=== PATIENT | female | born 1980 | race Caucasian/White ===

== ENCOUNTER 2018-08-29 13:08 | Outpatient (REF) | payer BC, SELFPAY | END 2018-08-29 13:28 | LOC: LBN 13:08 | PROVIDERS: PCP Family Medicine | DX: J02.9 Acute pharyngitis, unspecified (principal) | CPT/HCPCS: 86060; 86215; 87081 ==

== ENCOUNTER 2019-08-27 16:40 | Outpatient (REF) | payer BC, SELFPAY ==
--- NOTE | 2019-08-27 15:40 | PAPFT_PTH ---
PATIENT: Darlin Reich LOC: [facility] U#:[id number] AGE/SX: 39/F ROOM: RE08/27/[address]: RODRIGO Kate : 1980 BED: DIS: 08/27/2019 SPEC #: [id number] RECD: 08/27/19 16:52 STATUS: MEL REQ #: [id number] AUGUSTINE: 08/27/19 15:[address]: Angella Mahoney DEPT: [facility] Cytology RECD BY: Sole Aceves ENTERED: 08/27/19 16:53 SP TYPE: PAPFT OTHR DR: Rito Samuels MD Tissues: 1 - CX/ENDOCX FOR PAP SMEARS Procedures: PAP THIN PREP/[facility] Screening HPV DNA PROBE Comments: [id number]
== END 2019-08-27 17:00 ==
LOC: LBN 16:40
PROVIDERS: PCP Family Medicine; Visit Provider Nurse Practitioner Family
DX: Z12.4 Encounter for screening for malignant neoplasm of cervix (principal); Z11.51 Encounter for screening for human papillomavirus (HPV)
CPT/HCPCS: 88142; 87624

== ENCOUNTER 2020-01-23 08:56 | Outpatient (CLI) | payer BC, SELFPAY ==
[2020-01-25 22:21] LABS: Patient Race White; SARS-CoV-2 RNA Undetected (Undetected); SARS-CoV-2 Specimen Source Nasal
== END 2020-01-23 09:16 ==
PROVIDERS: PCP Family Medicine; Visit Provider Family Medicine
DX: Z11.59 Encounter for screening for other viral diseases (principal)
CPT/HCPCS: U0003

== ENCOUNTER 2021-09-18 17:20 | Outpatient (REF) | payer BC, SELFPAY | END 2021-09-18 17:21 | disposition home or self-care (01) | LOC: LBN 17:20 | PROVIDERS: PCP Family Medicine; Visit Provider Nurse Practitioner ==

== ENCOUNTER 2021-09-20 15:35 | Outpatient (REF) | payer BC, SELFPAY | END 2021-09-20 15:36 | disposition home or self-care (01) | LOC: LBN 15:35 | PROVIDERS: PCP Family Medicine; Visit Provider Nurse Practitioner | DX: J02.9 Acute pharyngitis, unspecified (principal) | CPT/HCPCS: 87070 ==

== ENCOUNTER 2023-05-26 12:35 | Outpatient (REF) | payer OTHER, SELFPAY | END 2023-05-26 12:36 | disposition home or self-care (01) | LOC: LBN 12:35 | PROVIDERS: PCP Family Medicine; Visit Provider Nurse Practitioner Family | DX: J02.9 Acute pharyngitis, unspecified (principal) | CPT/HCPCS: 87070 ==

== ENCOUNTER 2024-04-26 15:11 | Outpatient (REF) | payer OTHER, SELFPAY | END 2024-04-26 15:12 | disposition home or self-care (01) | LOC: LBN 15:11 | PROVIDERS: PCP Family Medicine; Visit Provider Nurse Practitioner Family | DX: J02.9 Acute pharyngitis, unspecified (principal); J03.90 Acute tonsillitis, unspecified | CPT/HCPCS: 87070 ==